=== PATIENT | female | born 1965 | race Caucasian/White ===

== ENCOUNTER 2018-11-27 09:27 | Day surgery (SDC) | payer MEDICAID ==
[~2018-11-27] VITALS: Ht 157.5 cm; Wt 81.6 kg
[2018-11-27] MEDS ORDERED: METF500T PO (11:59)
[2018-11-27] MEDS ORDERED: LIDOCAINE 2% 100 MG/5 ML UJET TP ONE (12:27)
[2018-11-27] MEDS ORDERED: fentaNYL 0.05 MG/ML VIAL ONE (12:27)
[2018-11-27] MEDS ORDERED: fentaNYL 0.05 MG/ML VIAL IVP ONE (13:35)
== END 2018-11-27 13:14 | disposition home or self-care (01) ==
LOC: MOR 09:27 → MMU 10:56 → MOR 13:14
PROVIDERS: ATTEND Internal Medicine Gastroenterology
DX: R19.5 Other fecal abnormalities (principal); D12.3 Benign neoplasm of transverse colon; E78.00 Pure hypercholesterolemia, unspecified; E11.9 Type 2 diabetes mellitus without complications; Z79.84 Long term (current) use of oral hypoglycemic drugs; Z79.899 Other long term (current) drug therapy
CPT/HCPCS: 45385; J3010